=== PATIENT | female | born 1990 | race Caucasian/White ===

== ENCOUNTER 2025-09-13 16:40 | Emergency (ER) | payer OTHER, SELFPAY ==
--- OUTSIDE RECORDS SUMMARY | 2013-09-05 07:07 | XMS_ITS | Continuity of Care Document ---
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 Please contact the source practice for further details. Medications Medication Instructions Dosage Effective Dates (start - stop) Status Comments hyoscyamine 0.125 mg Sublingual Tab 1 tid-qid prn pain - Active Citrucel Oral Powder Take once daily - Active Align 4 mg Cap As Directed - Active Lupron Depot (3 Month) 22.5 mg IM Syringe Kit once monthly - Active Multiple Vitamin-Minerals Tab Take once daily - Active Singulair 10 mg Tab Take once daily - Acti ve lithium carbonate 300 mg Tab 1 twice daily - Active Cymbalta 60 mg Cap 1 twice daily - Active Procedures Procedure Date Offic/outpt E&m Estab Low-mod 1 Offic/outpt E&m Estab Low-mod 0 Bx Liver Needle; Percut Ultrason Guidan Needle Bx-rad 0 Offic/outpt E&m Estab Low-mod 0 Colonoscopy Flex; W/bx 1/mx ASC Facility Charge Offic Cons New/estab Mod Advance Directives Directive Yes / No Effective Date File Name No Information Encounters Encounter Description Practice Location Reason(s) For Visit Diagnoses Date Provider Providers Copied on Encounter [facility], [address] [place] [address], [id number] tel:[phone] [facility] No Information 3 Shawnee Loza. [address] [place] [address], [id number], [place]. tel:[phone] [facility], [address] [place] [address], [id number] tel:[phone] [facility] No Information 2 Yann [facility]. [address] [place] [address], [id number], [place]. tel:[phone] Offic/outpt E&m Estab Low-mod [facility], [address] [place] [address], [id number] tel:[phone] [facility] Chronic Fatty Liver,/non alcoholicDiar rheaAbdominal pain, generalized Dec-0 1 Shawnee Ortegache. [address] [place] [address], [id number], [place]. tel:[phone] Referring Provider: Joaquim Parmar DO, [facility] [address] [place], [address]. tel:[phone] Offic/outpt E&m Estab Low-mod [facility], [address] [place] [address], [id number] tel:[phone] [facility] Abdominal pain, generalizedIr ritable bowel syndrome Dec-0 0 Shawnee Loza. [address] [place] [address], [id number], [place]. tel:[phone] Referring Provider: Sergei Salazar DO, [address] [place] [address], [id number]. tel:[phone] [facility], [address] [place] [address], [id number] tel:[phone] [facility] No Information Sep-0 0 Shawnee Loza. [address] [place] [address], [id number], [place]. tel:[phone] Referring Provider: Sergei Salazar DO, [address] [place] [address], [place], [address]. tel:[phone] Offic/outpt E&m Estab Low-mod [facility], [address] [place] [address], [id number] tel:[phone] [facility] Abnormal liver tests 0 Shawnee Loza. [address] [place] [address], [id number], [place]. tel:[phone] Referring Provider: Sergei Salazar DO, [address] [place] [address], [place], [address]. tel:[phone] [facility], [address] [place] [address], [id number] tel:[phone] [facility] Rectal PolypFamily History of Colon PolypsRectal PolypFamily History of Colon PolypsChange in bowel habits 0 Zack Garay. [address] [place] [address], [id number], [place]. tel:[phone] Referring Provider: Sergei Salazar DO, [address] [place] [address], [place], [address]. tel:[phone] [facility], [address] [place] [address], [id number] tel:[phone] [facility] No Information 0 [facility]. [address] [place] [address], [id number], [place]. tel:[phone] Referring Provider: Jarrod Lopez, [address] [place] [address], [id number]. tel:[phone] Offic Cons New/estab Mod [facility], [address] [place] [address], [id number] tel:[phone] [facility] Abnormal liver testsHeartbur nAbdominal pain, generalizedIr ritable bowel syndrome 0 Shawnee Loza. [address] [place] [address], [id number], [place]. tel:[phone] Referring Provider: Sergei Salazar DO, [address] [facility], [place], [address]. tel:[phone] Family History Family Member Type Diagnosis Age At Onset No Information Payers Payer name Insurance type Covered constitution party ID Authorhca wilson(s) [facility] [id number] Social History Type Description Quantity Date Captured Comments Sex Female Smoking Status No Information Chief Complaint And Reason For Visit No Information Reason For Referral Reason For Referral No Information History Of Present Illness Encounter Date Complaint History Of Prese nt Illness No Information Functional Status Date Functional Assessmen t No Information Instructions Date Instruction Additional Infor mation No Information Assessments Type Assessment Date No Information Patient Care Teams Name Effective Dates (start - stop) Status Members No Information
--- OUTSIDE RECORDS SUMMARY | 2022-10-12 11:14 | XMS_ITS | Continuity of Care Document ---
Author Organization [facility] Address [address] [place] [address] Phone Care Team Providers Care Drafter Patent Name Role Phone Elvis PT, DPT, Mirta Unavailable Unav ailable Procedures Procedure Date Therapeutic Activities Neuromuscular Re-Ed Therapeutic Exercise Dry Needling 1-2 muscles Therapeutic Activities Neuromuscular Re-Ed Therapeutic Exercise Dry Needling 1-2 muscles Therapeutic Activities Neuromuscular Re-Ed Therapeutic Exercise Dry Needling 1-2 muscles Neuromuscular Re-Ed Therapeutic Exercise Manual Therapy Neuromuscular Re-Ed Dry Needling 1-2 muscles Therapeutic Exercise Hot or Cold Pack Neuromuscular Re-Ed Therapeutic Exercise Dry Needling 1-2 muscles PT Evaluation Moderate Complexity Therapeutic Exercise Neuromuscular Re-Ed Advance Directives Directive Yes / No Effective Date File Name No Information Encounters Encounter Description Practice Location Reason(s) For Visit Diagnoses Date Provider Providers Copied on Encounter [facility], [address], [place], [place], [id number], [place] tel:[phone] [facility] No Information Nov-2 3-202 2 Elvis Mirta. . [facility] [address], [place], [place], [id number], tel:[phone] [place] No Information 2 Elvis Mirta. . Referring Provider: Access [facility]. [facility] [address], [place], [place], [id number], tel:[phone] [place] No Information 2 Elvis Mirta. . Referring Provider: [facility]. [facility] [address], [place], [place], [id number], tel:[phone] [place] No Information 2 Elvis Mirta. . Referring Provider: [facility]. [facility] [address] [address], [place], [place], [id number], tel:[phone] [place] No Information 2 Elvis Mirta. . Referring Provider: [facility] [employer]. [facility] [address], [place], [place], [id number], tel:[phone] [place] No Information 2 Elvis Mirta. . Referring Provider: [facility] [employer]. [facility] [address], [place], [place], [id number], tel:[phone] [place] No Information 2 Elvis Mirta. . Referring Provider: [facility]. [facility] [place] [employer] [facility], [place], [place], [id number], tel:[phone] [place] No Information 2 Elvis Mirta. . Referring Provider: [facility] [employer]. Family History Family Member Type Diagnosis Age At Onset No Information Payers Payer name Insurance type Covered green party ID Patricio wilson(s) [facility] [id number] Social History Type Description Quantity Date Captured Comments Sex Female Smoking Status No Information Chief Complaint And Reason For Visit No Information Reason For Referral Reason For Referral No Information History Of Present Illness Encounter Date Complaint History Of Prese nt Illness No Information Functional Status Date Functional Assessmen t No Information Instructions Date Instruction Additional Infor mation Giving encouragement to exercise Related to Overweight Giving encouragement to exercise Related to Overweight Assessments Type Assessment Date No Information Patient Care Teams Name Effective Dates (start - stop) Status Members No Information
[2025-09-13 16:45] VITALS: BP 137/82; PULSE 66; RESP 20; TEMP 36.7; O2SAT 99
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
--- OUTSIDE RECORDS SUMMARY | 2025-09-13 16:46 | XMS_ITS | Encounter Summary ---
Author Organization [facility] Address [address] [place] [address] Care Team Providers Care Sweep Molder Name Role Phone Cynthia Buckley MD Primary Care Provider [phone] Reason for Visit * Reason Comments Question Encounter Details Date Type Department Care Team ([facility] Contact Info) Description 04/02/2025 Telephone [facility] Norma Hong [address] [place] [address] [place] [address] [place] [address] Question Social History Tobacco Use Types Packs/Day Years Used Date Smoking Tobacco: Every Day Cigarettes 0.5 15 Passive Smoke Exposure: Current Smokeless Tobacco: Never Alcohol Use Standard Drinks/Week Comments Yes 0 (1 standard drink = 0.6 oz pure alcohol) Rarely drink. Like 1 glass at new years Comments No Sex and Gender Information Value Date Recorded Sex Assigned at Female 03/08/2024 9:33 AM CDT Legal Sex Female 10:19 AM CUSHION ASSEMBLER Gender Identity Female 03/08/2024 9:33 AM CDT Sexual Orientation Straight 03/08/2024 9: 33 AM CDT documented as of this encounter Miscellaneous Notes * Telephone Encounter - Jackie Manning - 04/02/2025 12:26 PM CDT Copied from [facility] #[id number]. Topic: Patient or Caregiver Communication Request >> April 02, 2025 12:23 PM Jackie Lopez wrote: Patient or Caregiver calling to update Care team on status after a recent visit Caller: Laya Del Rosario Patient/Caregiver Callback Number: [phone] Call Notes: wants to know if there is any restrictions for her right knee , if not that's fine she just wants to know . documented in this encounter Plan of Treatment Upcoming Encounters Date Type Department Care Team (Late st Contact Info) Description 10/24/2025 3:00 PM CUSHION ASSEMBLER Appointment [facility] [place] [address] [phone] [place] [address] [address] 12/22/2025 10:00 AM CUSHION ASSEMBLER Appointment [facility] [place]a [place] [address] [facility] [address] [place] [address] [place] [address] [address] documented as of this encounter Visit Diagnoses Not on filedocumented in this encounter Additional Health Concerns Assessment Noted Time PHQ-9 Depression Total Score: 6 12/23/19 25 11:06 AM CUSHION ASSEMBLER documented as of this encounter Care Teams Sweep Molder Relationship Specialty [place] [address] [address] PCP - General Family Practice 07/13/21 documented as of this encounter
--- OUTSIDE RECORDS SUMMARY | 2025-09-13 16:46 | XMS_ITS | Clinical Summary ---
Author Organization [facility] Address [address] [place] [address] Care Team Providers Care Cream Buyer Name Role Phone Mira Paz Primary Care Provider [phone] Source Comments [facility],non-owned Affiliates and Associated Physician Practices is amultiple site organization consisting of ambulatory clinics and hospital sitesin [place], [place], [place] and [place]. This disclosure is being madepursuant to the Care Everywhere program and may not contain all information available regarding this patient. Last updated 18.[facility] Allergies No known active allergies Medications * Be aware that medications may not be up to date on this document. Alwaysverify current medications with the patient. diclofenac sodium EC (VOLTAREN) 75 MG tablet Take 1 (one) tablet by mouth 2 times daily as needed with food 20 tablet 10/22/2021 Active cyclobenzaprine (FLEXERIL) 10 MG tablet Take 1 (one) tablet by mouth 2 times daily as needed with food for Muscle Spasms 20 tablet 10/22/2021 Active Social History Tobacco Use Types Packs/Day Years Used Date Smoking Tobacco: Never Assessed Comments No Sex and Gender Information Value Date Recorded Sex Assigned at Not on file Legal Sex Female 9:16 AM HAND STAPLER Gender Identity Not on file Sexual Orientation Not on file Last Filed Vital Signs Vital Sign Reading Time Taken Comments Blood Pressure 119/82 10/22/2021 7:20 PM HAND STAPLER Pulse 111 10/22/2021 7:20 PM HAND STAPLER Temperature 36.8 C (98.3 F) 10/22/2021 7:20 PM HAND STAPLER Respiratory Rate 16 10/22/2021 7:20 PM HAND STAPLER Oxygen Saturation 99% 10/22/2021 7:20 PM HAND STAPLER Inhaled Oxygen Concentration - - Weight 109.8 kg (242 lb) 10/22/2021 7:20 PM HAND STAPLER Height 160 cm (5' 3) 10/22/2021 7:20 PM HAND STAPLER Body Mass Index 42.87 10/22/2021 7:20 PM HAND STAPLER Plan of Treatment Health Maintenance Due Date Last Done Comments HIV SCREENING 2003 HEPATITIS C SCREENING 05/17/2006 DTAP/TDAP/TD VACCINES (1 - Tdap) 2007 HEPATITIS B VACCINE (1 of 3 - 19+ 3-dose series) 2007 HPV VACCINE (1 - 3-dose SCDM series) 2015 DEPRESSION SCREENING 11/20/2024 COVID-19 VACCINE (2 - 2024-2 6 season) 2025 03/25/2021 INFLUENZA VACCINE (#1) 2025 , 09/10/2020, 09/02/2018 ZOSTER VACCINE (1 of 2) 2038 HIB VACCINE Aged Out No longer eligi ble based on patient's age to complete this topic MENINGOCOCCAL (Group B) VACCINE SHARED DECISION-MAKING Aged Out No longer eligible based on patient's age to complete this topic MENINGOCOCCAL GROUPS A/C/Y/W VACCINE Aged Out No longer eligible b ased on patient's age to complete this topic PNEUMOCOCCAL VACCINE Aged Out No long er eligible based on patient's age to complete this topic Insurance [facility] [employer] LIABILITY Libertarian Liability [facility] Care Teams Cream Buyer Relationship Specialty Start Date End Date Mira Paz PA [address] [address] PCP - General Physician Rn Telemetry 10/22/21
--- OUTSIDE RECORDS SUMMARY | 2025-09-13 16:46 | XMS_ITS | Encounter Summary ---
Author Organization [facility] Address [address] [place] [address] Care Team Providers Care Plastics Supervisor Name Role Phone Cynthia Buckley MD Primary Care Provider [phone] Reason for Visit * Reason Onset Date Comments PA REQUEST 05/07/2024 VARENICLINE TART RATE Encounter Details Date Type Department Care Team (Late st Contact Info) Description 05/07/2024 Telephone [facility] [place] [address] [facility] [address] [place] [address] [place] [address] [facility] [address] [place] [address] PA REQUEST (VARENICLINE TARTRATE ) Social History Tobacco Use Types Packs/Day Years Used Date Smoking Tobacco: Every Day Cigarettes 0.5 15 Smokeless Tobacco: Never Alcohol Use Standard Drinks/Week Comments Yes 0 (1 standard drink = 0.6 oz pure alcohol) Rarely drink. Like 1 glass at new years Comments No Sex and Gender Information Value Date Recorded Sex Assigned at Female 03/08/2024 9:33 AM CDT Legal Sex Female 10:19 AM MUSIC EXECUTIVE Gender Identity Female 03/08/2024 9:33 AM CDT Sexual Orientation Straight 03/08/2024 9: 33 AM CDT documented as of this encounter Miscellaneous Notes * Telephone Encounter - Kelly Arceo - 05/07/2024 8:27 AM CDT PA REQUEST: VARENICLINE TARTRATE documented in this encounter Plan of Treatment Upcoming Encounters Date Type Department Care Team (Late st Contact Info) Description 10/24/2025 3:00 PM MUSIC EXECUTIVE Appointment [facility] [place] [address] [facility] [address] [place] [address] [place] [address] [facility] [address] [place] [address] 12/22/2025 10:00 AM MUSIC EXECUTIVE Appointment [facility] [place] [address] [facility] [address] [place] [address] [place] [address] [facility] [address] [place] [address] documented as of this encounter Visit Diagnoses Not on filedocumented in this encounter Care Teams Plastics Supervisor Relationship Specialty [place] [id number] [facility] [address] [place] [address] PCP - General Family Practice 07/13/21 documented as of this encounter
--- NOTE | 2025-09-13 16:52 | ED_ITS ---
HPI - Dental/Oral General Chief complaint: Dental/Oral Stated complaint: Toothache Time Seen by Provider: 09/13/25 16:52 Source: patient Mode of arrival: ambulatory Limitations: no limitations History of Present Illness HPI Narrative: 35 yo F presents with R sided upper dental pain for 2 days. Afebrile. Thinks wisdom tooth is growing in and causing infection. bad taste and smell. has appt with dentist in 2 wks. All systems reviewed and negative except as noted above. Related Data Home Medications ?Medication ?Instructions ?Recorded ?Confirmed ?Last Taken ?Type bupropion HCl 150 mg 24 hr tablet, mg PO 09/13/25 Unk nown History extended release bupropion HCl 200 mg tablet,12 hr mg PO 09/13/25 Unkn own History sustained-release dextroamphetamine-amphetamine 5 mg 09/13/25 Unknown History tablet levothyroxine 75 mcg tablet mcg 09/13/25 Unknown Hist ory Allergies Allergy/AdvReac Type Severity Reaction Status Date / Time No Known Allergies Allergy Verified 09/13/25 16:54 PMFSH Comments At time of signature, agree with nursing past medical, surgical, social and family history. There is no relevant family history pertinent to the presenting complaint. Exam Narrative: GENERAL: This is a well-nourished, well-developed patient, in no apparent distress. HEAD: normocephalic, atraumatic. EYES: PERRL. Sclera clear/white. Vision is grossly intact. EARS: External ears normal NOSE: External nose normal MOUTH: tooth #32 impacted, surrounding erythema, swelling and drainage NECK: Neck supple, non-tender without lymphadenopathy, masses or thyromegaly. CARDIOVASCULAR: Regular rate and rhythm without murmurs, gallops, or rubs. RESPIRATORY: Clear to auscultation. Breath sounds equal bilaterally. No wheezes, rales, or rhonchi. SKIN: warm, Dry, intact with no suspicious lesions or rash, good texture and turgor. NEURO: awake, alert, and oriented to person, place and time. There were no obvious focal neurologic abnormalities. EXTREMITIES: No joint tenderness, effusion, or edema noted. Course Course Level of Care: Express Care Visit Vital Signs Vital signs: Vital Signs Temperature 36.7 C 09/13/25 16:45 Pulse Rate 66 09/13/25 16:45 Respiratory Rate 20 09/13/25 16:45 Blood Pressure 137/82 09/13/25 16:45 Pulse Oximetry 99 09/13/25 16:45 Oxygen Delivery Room Air 09/13/25 16:45 Temperature 36.7 C 09/13/25 16:45 Pulse Rate 66 09/13/25 16:45 Respiratory Rate 20 09/13/25 16:45 Blood Pressure 137/82 09/13/25 16:45 Pulse Oximetry 99 09/13/25 16:45 Oxygen Delivery Room Air 09/13/25 16:45 Reviewed MDM - Dental/Oral MDM Narrative Medical decision making narrative: will treat with Augmentin for infection. Has appointment with dentist in 2 weeks. Patient well-appearing, nontoxic. Differential Diagnosis Differential diagnosis: Likely dental caries, toothache and dental abscess Discharge Plan Discharge Clinical Impression: Dental infection Patient Disposition: Home Condition: Stable Instructions: Antibiotic Form, Toothache (ED) Additional Instructions: Take antibiotic as prescribed until gone. Take ibuprofen or Tylenol every 6-8 hours as needed for pain. Follow-up with dentist at scheduled appointment. Patient Language: Upper Sorbian Prescriptions: New amoxicillin-pot clavulanate 875-125 mg tablet 1 tablet PO Q12H 10 Days Qty: 20 0RF No Action levothyroxine 75 mcg tablet dextroamphetamine-amphetamine 5 mg tablet bupropion HCl 200 mg tablet sustained-release 12 hr PO bupropion HCl 150 mg tablet extended release 24 hr PO Follow-up/Referrals: UNKNOWN,DOCTOR [Primary Care Provider] Time of Disposition: 16:57
== END 2025-09-13 17:02 | disposition home or self-care (01) ==
PROVIDERS: Emergency Provider Nurse Practitioner Family
DX: K04.7 Periapical abscess without sinus (principal); E03.9 Hypothyroidism, unspecified; F90.9 Attention-deficit hyperactivity disorder, unspecified type; F32.A Depression, unspecified
CPT/HCPCS: 99203; G0463